=== PATIENT | male | born 1975 | race Caucasian/White ===

== ENCOUNTER → 2020-03-06 | Outpatient (CLI) | payer OTHER ==
[~2020-03-06] MED LIST: ADDE20CA3 PO; AMOXICILLIN; AMOXICILLIN PO; DECADRON PO; LORTAB ELIXIR PO; TYLENOL PO
[2020-03-06 15:39] LABS: HEMATOCRIT 40.6 % (42.0-52.0); HEMOGLOBIN 13.8 g/dl (13.5-17.5); MEAN CORPUSCULAR HEMOGLOBIN 32.5 pg (27.0-33.0); MEAN CORPUSCULAR VOLUME 95.5 fl (80.0-96.0); PLATELET COUNT, AUTOMATED 258 10^3/uL (150-450); RED BLOOD COUNT 4.25 10^6/uL (4.30-6.10); WHITE BLOOD COUNT 5.1 10^3/uL (4.0-10.0)
[2020-03-06 15:56] LABS: ALBUMIN 4.2 GM/DL (3.2-5.2); ALT/SGPT 42 U/L (12-78); BILIRUBIN,TOTAL 0.6 MG/DL (0.2-1.0); BLOOD UREA NITROGEN 18 MG/DL (7-18); CALCIUM LEVEL 9.1 MG/DL (8.5-10.1); CARBON DIOXIDE LEVEL 26 MEQ/L (21-32); CHLORIDE LEVEL 105 MEQ/L (98-107); CHOLESTEROL LEVEL 229 MG/DL (<200); CHOLESTEROL RISK RATIO 6.939 (<5); CREATININE FOR GFR 1.12 MG/DL (0.70-1.30); GLOMERULAR FILTRATION RATE > 60.0 (>60); GLUCOSE, FASTING 90 MG/DL (70-100); HDL CHOLESTEROL 33 MG/DL (>40); NON-HDL-C 196 MG/DL; POTASSIUM SERUM 4.5 MEQ/L (3.5-5.1); SODIUM LEVEL 139 MEQ/L (136-145); TOTAL PROTEIN 7.9 GM/DL (6.4-8.2); TRIGLYCERIDES LEVEL 506 MG/DL (<150)
== END ==
LOC: M WUC 11:43
PROVIDERS: ATTEND Family Medicine
DX: R03.0 Elevated blood-pressure reading, without diagnosis of hypertension (principal)

== ENCOUNTER → 2021-03-08 | Outpatient (CLI) | payer OTHER ==
[2021-03-08 12:37] LABS: HEMATOCRIT 38.7 % (42.0-52.0); HEMOGLOBIN 12.6 g/dl (13.5-17.5); MEAN CORPUSCULAR HEMOGLOBIN 31.4 pg (27.0-33.0); MEAN CORPUSCULAR HGB CONC 32.6 g/dl (32.0-36.5); MEAN CORPUSCULAR VOLUME 96.5 fl (80.0-96.0); PLATELET COUNT, AUTOMATED 240 10^3/uL (150-450); RED BLOOD COUNT 4.01 10^6/uL (4.30-6.10); WHITE BLOOD COUNT 4.6 10^3/uL (4.0-10.0)
[2021-03-08 13:01] LABS: ALBUMIN 4.1 GM/DL (3.2-5.2); ALT/SGPT 33 U/L (12-78); BILIRUBIN,TOTAL 0.6 MG/DL (0.2-1.0); BLOOD UREA NITROGEN 17 MG/DL (7-18); CALCIUM LEVEL 8.8 MG/DL (8.5-10.1); CARBON DIOXIDE LEVEL 28 MEQ/L (21-32); CHLORIDE LEVEL 108 MEQ/L (98-107); CHOLESTEROL LEVEL 176 MG/DL (<200); CHOLESTEROL RISK RATIO 6.285 (<5); CREATININE FOR GFR 1.15 MG/DL (0.70-1.30); GLOMERULAR FILTRATION RATE > 60.0 (>60); GLUCOSE, FASTING 95 MG/DL (70-100); HDL CHOLESTEROL 28 MG/DL (>40); LDL CHOLESTEROL 89 MG/DL (<100); NON-HDL-C 148 MG/DL; POTASSIUM SERUM 4.4 MEQ/L (3.5-5.1); SODIUM LEVEL 139 MEQ/L (136-145); TOTAL PROTEIN 7.3 GM/DL (6.4-8.2); TRIGLYCERIDES LEVEL 293 MG/DL (<150)
== END ==
LOC: M WUC 08:28
PROVIDERS: ATTEND Family Medicine
DX: Z00.00 Encounter for general adult medical examination without abnormal findings (principal)

== ENCOUNTER → 2021-06-18 | Outpatient (CLI) | payer OTHER ==
--- NOTE | 2021-06-18 13:47 | REP ---
INDICATION: UMBILICAL HERNIA W/O OBST OR GANAGRENE. COMPARISON: None. TECHNIQUE: Targeted abdominal wall ultrasound at the umbilicus. With and without Valsalva. FINDINGS: Umbilical sonography confirms the presence of a 1.8 cm defect in the anterior abdominal wall with hypoechoic abdominal contents moving through the defect with Valsalva. Not completely reducible with transducer pressure. A tiny amount of fluid is seen. No peristalsis is noted. IMPRESSION: Umbilical hernia transmitting what is most likely abdominal fat as no peristalsis was seen. 1.8 cm defect. <Electronically signed by George Henry > 06/18/21 [id number]
== END ==
LOC: M RAD 10:43
PROVIDERS: ATTEND Family Medicine
DX: K42.9 Umbilical hernia without obstruction or gangrene (principal)

== ENCOUNTER → 2021-08-17 | Outpatient (CLI) | payer OTHER | LOC: M LABSMTC 10:35 | PROVIDERS: ATTEND Anesthesiology | DX: Z11.52 Encounter for screening for COVID-19 (principal); Z20.828 Contact with and (suspected) exposure to other viral communicable diseases ==

== ENCOUNTER 2021-08-20 10:55 | Day surgery (SDC) | payer OTHER ==
[~2021-08-20] VITALS: Ht 182.9 cm; Wt 115.4 kg
[~2021-08-20 10:55] MED LIST changes: +LIDOCAINE 1% MDV 20ML VIAL SQ PRN; +LIDOCAINE 2% 100MG/5ML SDV (FOR ANES.) As Ordered ONE; +LR 1,000 ML IV ONE; +MIDAZOLAM INJ 2MG/2ML VIAL (J2250 PER 1MG) As Ordered ONE; +ROCURONIUM BROMIDE 50 MG/5 ML VIAL As Ordered ONE; +fentaNYL 250 MCG/5 ML INJECTION (J3010) As Ordered ONE; +propofoL 200 MG/20 ML VIAL As Ordered ONE
--- OUTSIDE RECORDS SUMMARY | 2021-08-20 11:00 | CCD | Continuity of Care Document ---
Author Author Mat ODONNELL M.D. Organization Unknown Address [address] [facility] [address] [facility], [address] [place] [address] Phone [phone] Care Team Providers Care Wood Gluer Name Role Phone Moshe Benrard M.D. AUTM [phone] AUTM Unavailable Problems Active Problems Provider Date Deviated nasal septum Ziggy Lezama MD Onset: 4 Hypertrophy of nasal turbinates Ziggy Lezama MD Onset: 11/29/2013 Chronic tonsillitis Ziggy Lezaam MD Onset: 11/29/2013 Hypertrophy of tonsils Ziggy Lezama MD Onset: 11/30/19 14 Difficulty breathing Ziggy Lezama MD Onset: 11/29/2013 Social History Type Date Description Comments Sex Unknown ETOH Use Occasionally consumes alcohol Tobacco Use Start: Unknown Denies Smoking Recreational Drug Use Denies Drug Use Allergies and adverse reactions Active Allergies Criticality Reaction | Severity Comments Date Sodium Pentathol Unable to assess criticality 11/23/2013 Medications Active Medications SIG Qnty Indications Ordering Provide r Date Fluticasone Propionate 50mcg/Act Suspension 2 sprays to each nostril daily 2units 478.0 Orlando mckee MD 02/14/2014 Claritin-D 24 Hour 1 0-240mg Tablets ER 24HR tab po qd 30tabs 470 Roshan Worthington MD 11/23/2013 Immunizations Description No Information Available Vital Signs Date Vital Result Comment 06/19/2021 10:36am BP Systolic 178 mmHg BP Diastolic 98 mmHg Body Temperature 98.5 F Height 72 inches 6'0" Weight 258.25 lb BMI (Body Mass Index) 35.0 kg/m2 [place] Body Weight 178 lb Weight 117.142 kg BSA (Body Surface Area) 2.38 m2 11/29/2013 10:21am Height 72 inches 6'0" Weight 225.00 lb BMI (Body Mass Index) 30.5 kg/m2 [place] Body Weight 178 lb Weight 102.060 kg BSA (Body Surface Area) 2.24 m2 Results Description No Information Available Procedures Date Code Description Status 06/19/2021 08666 Office/Outpatient New Moderate M DM 45-59 Minutes Completed Medical Devices Description No Information Available Encounters Type Date Location Provider Dx Diagnosis Office Visit 06/19/2021 10:15a [facility] Jose davidson M.D. K42.9 Umbilical hernia without obstruction or gangrene Assessments Date Code Description Provider 06/19/2021 K42.9 Umbilical hernia without obstruc tion or gangrene Jose Odonnell M.D. Plan of Treatment Future Appointment(s):* 09/02/2021 10:30 am - MANISH Bo at [facility] * 08/20/2021 11:45 am - Jose Odonnell M.D. at [facility] 06/19/2021 - Jose Odonnell M.D.* K42.9 Umbilical hernia without obstruction or gangrene* Comments:* Patient was counseled for repair of his hernia. He is having some symptoms with discomfort at times. His hernia likely contains only some fatty tissue but there is always a risk that it will increase in size over time and potentially lead to incarceration or strangulation. I described the repair for him. I advised him that I am now repairing these most often using a robotic assisted laparoscopic repair with placement of mesh. Risks of the procedure were discussed. He had an opportunity to ask questions. He desires to proceed with the surgery and this will be scheduled. Functional Status Description No Information Available Mental Status Description No Information Available Referrals Refer to Reason for Referral Status Appt Date Jose Odonnell M.D. UMBILICAL HERNIA Scheduled 06/19/20 [facility] [address] [place] [address] [phone]
--- OUTSIDE RECORDS SUMMARY | 2021-08-20 11:00 | CCD | Continuity of Care Document ---
Author Author Mat ODONNELL M.D. Organization Unknown Address [address] [facility], [address] [place] [address] Phone [phone] Care Team Providers Care Firmware Engineer Name Role Phone Moshe Bernard M.D. AUTM [phone] AUTM Unavailable Problems Active Problems Provider Date Deviated nasal septum Ziggy Lezama MD Onset: 4 Hypertrophy of nasal turbinates Ziggy Lezama MD Onset: 11/29/2013 Chronic tonsillitis Ziggy Lezama MD Onset: 11/29/2013 Hypertrophy of tonsils Ziggy Lezama MD Onset: 11/30/19 14 Difficulty breathing Ziggy Lezama MD Onset: 11/29/2013 Social History Type Date Description Comments Sex Unknown ETOH Use Occasionally consumes alcohol Tobacco Use Start: Unknown Denies Smoking Recreational Drug Use Denies Drug Use Allergies, Adverse Reactions, Alerts Active Allergies Criticality Reaction | Severity Comments [...] lb BMI (Body Mass Index) 35.0 kg/m2 [place] Body Weight 178 lb Weight 117.142 kg BSA (Body Surface Area) 2.38 m2 11/29/2013 10:21am Height 72 inches 6'0" Weight 225.00 lb BMI (Body Mass Index) 30.5 kg/m2 [place] Body Weight 178 lb Weight 102.060 kg BSA (Body Surface Area) 2.24 m2 Results Description No Information Available Procedures Description No Information Available Medical Devices Description No Information Available Encounters Description No Information Available Assessments Description No Information Available Plan of Treatment 03/23/2014 - Delmar Collazo II, PA-C* 470 Deviated Nasal Septum * 478.0 Hypertrophy Nasal Turbinates* Comments:* Snoring is now minimal. He has had a significant improvement in the ability to move air through his nasal passages. He is not interested in surgical correction of his nasal deviation at this time. He should continue with Flonase as directed. He can follow up with this office if he has an increase in symptoms or concerns. * Follow up:* PRN Functional Status Description No Information Available Mental Status Description No Information Available Referrals Refer to Reason for Referral Status Appt Date Jose Odonnell M.D. UMBILICAL HERNIA Scheduled 06/19/20 21 [facility] [address] [place] [address] [phone]
--- OUTSIDE RECORDS SUMMARY | 2021-08-20 11:00 | CCD ---
Author Author [facility] Organization [facility] Address Unknown Phone Unavailable Care Team Providers Care Sales Operations Coordinator Name Role Phone MAYES, ABRAHAM UMAIR RPA-C Unavailable Unavailable MAYES, ABRAHAM UMAIR RPA-C Unavailable Unavailable MAYES, ABRAHAM UMAIR RPA-C Unavailable Unavailable MAYES, ABRAHAM UMAIR RPA-C Unavailable Unavailable MAYES, ABRAHAM UMAIR RPA-C Unavailable Unavailable MAYES, ABRAHAM UMAIR RPA-C Unavailable Unavailable MAYES, ABRAHAM UMAIR RPA-C Unavailable Unavailable MAYES, ABRAHAM UMAIR RPA-C Unavailable Unavailable MAYES, ABRAHAM UMAIR RPA-C Unavailable Unavailable MAYES, ABRAHAM UMAIR RPA-C Unavailable Unavailable MAYES, ABRAHAM UMAIR RPA-C Unavailable Unavailable MAYES, ABRAHAM UMAIR RPA-C Unavailable Unavailable MAYES, ABRAHAM UMAIR RPA-C Unavailable Unavailable MAYES, ABRAHAM UMAIR RPA-C Unavailable Unavailable MAYES, ABRAHAM UMAIR RPA-C Unavailable Unavailable MAYES, ABRAHAM UMAIR RPA-C Unavailable Unavailable MAYES, ABRAHAM UMAIR RPA-C Unavailable Unavailable MAYES, ABRAHAM UMAIR RPA-C Unavailable Unavailable MAYES, ABRAHAM UMAIR RPA-C Unavailable Unavailable MAYES, ABRAHAM UMAIR RPA-C Unavailable Unavailable MAYES, ABRAHAM UMAIR RPA-C Unavailable Unavailable MAYES, ABRAHAM UMAIR RPA-C Unavailable Unavailable MAYES, ABRAHAM UMAIR RPA-C Unavailable Unavailable MAYES, ABRAHAM UMAIR RPA-C Unavailable Unavailable MAYES, ABRAHAM UMAIR RPA-C Unavailable Unavailable MAYES, ABRAHAM UMAIR RPA-C Unavailable Unavailable MAYES, ABRAHAM UMAIR RPA-C Unavailable Unavailable MAYES, ABRAHAM UMAIR RPA-C Unavailable Unavailable MAYES, ABRAHAM UMAIR RPA-C Unavailable Unavailable MAYES, ABRAHAM UMAIR RPA-C Unavailable Unavailable MAYES, ABRAHAM UMAIR RPA-C Unavailable Unavailable MAYES, ABRAHAM UMAIR RPA-C Unavailable Unavailable MAYES, ABRAHAM UMAIR RPA-C Unavailable Unavailable MAYES, ABRAHAM UMAIR RPA-C Unavailable Unavailable MAYES, ABRAHAM UMAIR RPA-C Unavailable Unavailable MAYES, ABRAHAM UMAIR RPA-C Unavailable Unavailable MAYES, ABRAHAM UMAIR RPA-C Unavailable Unavailable MAYES, ABRAHAM UMAIR RPA-C Unavailable Unavailable MAYES, ABRAHAM UMAIR RPA-C Unavailable Unavailable MAYES, ABRAHAM UMAIR RPA-C Unavailable Unavailable MAYES, ABRAHAM UMAIR RPA-C Unavailable Unavailable MAYES, ABRAHAM UMAIR RPA-C Unavailable Unavailable MAYES, ABRAHAM UMAIR RPA-C Unavailable Unavailable BELLE, O SHINE SHARPE Unavailable Unavailable BELLE, O SHINE MD Unavailable Unavailable BELLE, O SHINE MD Unavailable Unavailable BELLE, O SHINE SHARPE Unavailable Unavailable BELLE, O SHINE MD Unavailable Unavailable BELLE, O SHINE SHARPE Unavailable Unavailable BELLE, O SHINE SHARPE Unavailable Unavailable BELLE, O SHINE SHARPE Unavailable Unavailable BELLE, O SHINE SHARPE Unavailable Unavailable BELLE, O SHINE SHARPE Unavailable Unavailable BELLE, O SHINE SHARPE Unavailable Unavailable BELLE, O SHINE SHARPE Unavailable Unavailable BELLE, O SHINE SHARPE Unavailable Unavailable BELLE, O SHINE SHARPE Unavailable Unavailable BELLE, O SHINE SHARPE Unavailable Unavailable BELLE, O SHINE SHARPE Unavailable Unavailable BELLE, O SHINE SHARPE Unavailable Unavailable BELLE, O SHINE SHARPE Unavailable Unavailable BELLE, O SHINE SHARPE Unavailable Unavailable BELLE, O SHINE SHARPE Unavailable Unavailable BELLE, O SHINE SHARPE Unavailable Unavailable BELLE, O SHINE SHARPE Unavailable Unavailable BELLE, O SHINE SHARPE Unavailable Unavailable BELLE, O SHINE SHARPE Unavailable Unavailable BELLE, O SHINE SHARPE Unavailable Unavailable BELLE, O SHINE MD Unavailable Unavailable BELLE, O SHINE MD Unavailable Unavailable BELLE, O SHINE SHARPE Unavailable Unavailable BELLE, O SHINE SHARPE Unavailable Unavailable BELLE, O SHINE MD Unavailable Unavailable BELLE, O SHINE SHARPE Unavailable Unavailable BELLE, O SIHNE SHARPE Unavailable Unavailable BELLE, O SHINE MD Unavailable Unavailable BELLE, O SHINE MD Unavailable Unavailable BELLE, O SHINE SHARPE Unavailable Unavailable Henrry ODONNELL MD Unavailable Unavailable Henrry ODONNELL MD Unavailable Unavailable Henrry ODONNELL MD Unavailable Unavailable Henrry ODONNELL MD Unavailable Unavailable Henrry ODONNELL MD Unavailable Unavailable Henrry ODONNELL MD Unavailable Unavailable Henrry ODONNELL MD Unavailable Unavailable Henrry ODONNELL MD Unavailable Unavailable Henrry ODONNELL MD Unavailable Unavailable Henrry ODONNELL MD Unavailable Unavailable Morrison, Cece GRAB JACK WORKER Unavailable Unavailable Morrison, Cece GRAB JACK WORKER Unavailable Unavailable Morrison, Cece GRAB JACK WORKER Unavailable Unavailable Morrison, Cece GRAB JACK WORKER Unavailable Unavailable Morrison, Cece GRAB JACK WORKER Unavailable Unavailable Morrison, Cece GRAB JACK WORKER Unavailable Unavailable Morrison, Cece GRAB JACK WORKER Unavailable Unavailable Morrison, Cece GRAB JACK WORKER Unavailable Unavailable Morrison, Cece GRAB JACK WORKER Unavailable Unavailable Morrison, Cece GRAB JACK WORKER Unavailable Unavailable Morrison, Cece GRAB JACK WORKER Unavailable Unavailable Morrison, Cece GRAB JACK WORKER Unavailable Unavailable Morrison, Cece GRAB JACK WORKER Unavailable Unavailable Morrison, Cece GRAB JACK WORKER Unavailable Unavailable Morrison, Cece GRAB JACK WORKER Unavailable Unavailable Morrison, Cece GRAB JACK WORKER Unavailable Unavailable Morrison, Cece GRAB JACK WORKER Unavailable Unavailable Morrison, Cece GRAB JACK WORKER Unavailable Unavailable Morrison, Cece GRAB JACK WORKER Unavailable Unavailable Morrison, Cece GRAB JACK WORKER Unavailable Unavailable Morrison, Cece GRAB JACK WORKER Unavailable Unavailable Morrison, Cece GRAB JACK WORKER Unavailable Unavailable Morrison, Cece GRAB JACK WORKER Unavailable Unavailable Morrison, Cece GRAB JACK WORKER Unavailable Unavailable Morrison, Cece GRAB JACK WORKER Unavailable Unavailable Morrison, Cece GRAB JACK WORKER Unavailable Unavailable Morrison, Cece GRAB JACK WORKER Unavailable Unavailable Morrison, Cece GRAB JACK WORKER Unavailable Unavailable Morrison, Cece GRAB JACK WORKER Unavailable Unavailable Morrison, Cece GRAB JACK WORKER Unavailable Unavailable Morrison, Cece GRAB JACK WORKER Unavailable Unavailable Morrison, Cece GRAB JACK WORKER Unavailable Unavailable Morrison, Elaine Ohara GRAB JACK WORKER Unavailable Unavailable Morrison, Elaine Ohara GRAB JACK WORKER Unavailable Unavailable Morrison, Elaine Ohara GRAB JACK WORKER Unavailable Unavailable Morrison, Elaine Ohara GRAB JACK WORKER Unavailable Unavailable Re-disclosure Warning The records that you are about to access may contain information from federally-assisted alcohol or drug abuse programs. If such information is present, then the following federally mandated warning applies: This information has been disclosed to you from records protected by federal confidentiality rules (42 CFR part 2). The federal rules prohibit you from making any further disclosure of this information unless further disclosure is expressly permitted by the written consent of the person to whom it pertains or as otherwise permitted by 42 CFR part 2. A general authorization for the release of medical or other information is NOT sufficient for this purpose. The Federal rules restrict any use of the information to criminally investigate or prosecute any alcohol or drug abuse patient.The records that you are about to access may contain highly sensitive health information, the redisclosure of which is protected by Article 27-F of the [facility] Public Health law. If you continue you may have access to information: Regarding HIV / AIDS; Provided by facilities licensed or operated by the [facility] Office of Mental Health; or Provided by the [facility] Office for People With Developmental Disabilities. If such information is present, then the following [facility] mandated warning applies: This information has been disclosed to you from confidential records which are protected by state law. State law prohibits you from making any further disclosure of this information without the specific written consent of the person to whom it pertains, or as otherwise permitted by law. Any unauthorized further disclosure in violation of state law may result in a fine or intermediate sentence or both. A general authorization for the release of medical or other information is NOT sufficient authorization for further disc losure. Allergies and Adverse Reactions Type Description Substance Reaction Status Data Source(s ) Allergy to substance Allergy to substance Allergy to substance [facility] ([facility]) Allergy to substance Allergy to substance Allergy to substance [facility] ([facility]) Family History Family Member Name Family Member Gender Family Member Status Date o f Status Description Data Source(s) Unknown Unknown Problem [facility] ([facility]) Encounters Encounter Providers Location Date Indications Data Source(s ) Outpatient Attender: SHINE Miller/Lion/Ander/Re indl 06/19/2021 10:15:00 AM EDT MED[facility] ([facility] Outpatient Attender: Mayda Frye [facility] Main Office 05/02/2021 09:45:00 AM EDT [facility] ([facility] Umair Mayes RPA-C: [address], [place] [address], Ph. Attender: UMAIR MAYES RPA-C [facility] 09/03/2020 12:00:00 AM EST [facility] ([facility]) Umair Mayes RPA-C: [address], [place] [address], Ph. Attender: UMAIR MAYES RPA-C [facility] 07/27/2020 12:00:00 AM EST [facility] ([facility]) Umair Mayes RPA-C: [address], [place] [address], Ph. Attender: UMAIR MAYES RPA-C [facility] 07/27/2020 12:00:00 AM EST [facility] ([facility]) Immunizations Vaccine Date Status Description Data Source(s) COVID-19 VACCINE Pfizer 12/12/2020 12:00:00 AM EDT completed [facility] Vaccine Series Complete: YESThis Data wa s Submitted to [facility]. COVID-19 VACCINE Pfizer 11/21/2020 12:00:00 AM EST completed [facility] Vaccine Series Complete: NOThis Data was Submitted to [facility]. New in 2011. IIV4 07/27/2020 11:30:00 AM EST completed .5 mL [facility] ([facility]) New in 2011. IIV4 07/27/2020 11:30:00 AM EST completed .5 mL [facility] ([facility]) Medications No Information Insurance Providers Payer name Policy type / Coverage type Policy ID Covered green party ID Covered green party's relationship to kimball Policy [place] Plan Information R U [id number] Self [id number] [facility] [id number] SP [id number] [facility] [id number] SP [id number] [facility]/[employer] (HMO) [id number] Self [id number] [employer] [id number] SP [id number] [employer] P[employer] P [id number] S [id number] [facility] [id number] SP [id number] [employer]/P [id number] 18 [id number] Problems, Conditions, and Diagnoses No Information Surgeries/Procedures Procedure Description Date Indications Data Source(s) OFFICE OUTPATIENT NEW 45 MINUTES 06/19/2021 12:00:00 [facility] OFFICE OUTPATIENT VISIT 25 MINUTES 05/02/2021 12:00:00 AM EDT ALL[facility] ([facility]) Results ID Date Data Source [id number] 08/17/2021 11:40:00 AM EST [facility] Name Value Range Interpretation Code Description Data Mary rce(s) Supporting Document(s) SARS-CoV-2 (COVID-19) RNA [Presence] in Respiratory specimen by CLARISSA with probe detection Not Detected [facility] This lab was ordered by [facility] and reported by [employer] Procedure Social History No Information Vital Signs ID Date Data Source UNK Name Value Range Interpretation Code Description Data Source(s) Body temperature 98.5 [degF] 98.5 [degF] [facility] ([facility]) Systolic blood pressure 178 mm[Hg] 178 mm[Hg] Isma CENTENO ([facility]) Body height 72 [in_i] 72 [in_i] [facility] ([facility]) 6'0" Diastolic blood pressure 98 mm[Hg] 98 mm[Hg] [facility] ([facility]) Body weight 258.25 [lb_av] 258.25 [lb_av] [facility] ([facility]) Body mass index (BMI) [Ratio] 35.0 kg/m2 35.0 k g/m2 [facility] ([facility]) Body weight 117.142 kg 117.142 kg [facility] ([facility]) [place] body weight 178 [lb_av] 178 [lb_av] [facility] ([facility]) Body surface area Derived from formula 2.38 m2 2.38 m2 [facility] ([facility]) Systolic blood pressure 128 mm[Hg] 128 mm[Hg] [facility] ([facility]) Diastolic blood pressure 98 mm[Hg] 98 mm[Hg] [facility] ([facility]) Systolic blood pressure 150 mm[Hg] 150 mm[Hg] M [facility] ([facility]) Diastolic blood pressure 85 mm[Hg] 85 mm[Hg] [facility] ([facility]) Body weight 240.00 [lb_av] 240.00 [lb_av] [facility] ([facility]) Body height 72 [in_i] 72 [in_i] [facility] ([facility]) 6'0" Body mass index (BMI) [Ratio] 32.5 kg/m2 32.5 k g/m2 [facility] ([facility])
[2021-08-20] MEDS ORDERED: BUPIVACAINE HCL 0.25% 30ML VIAL As Ordered ONE (13:39)
[2021-08-20] MEDS ORDERED: LACRILUBE (AKWA TEARS) OPHTH OINT 3.5 GM As Ordered ONE (14:04)
[2021-08-20] MEDS ORDERED: ROCURONIUM BROMIDE 50 MG/5 ML VIAL As Ordered ONE (14:31)
[2021-08-20] MEDS ORDERED: ACETAMINOPHEN 1000MG 100ML IV BTL (OFIRMEV) (J0131 PER 10MG) As Ordered ONE (14:34)
[2021-08-20] MEDS ORDERED: ONDANSETRON 4MG/2ML VIAL As Ordered ONE (14:34)
[2021-08-20] MEDS ORDERED: KETOROLAC 60MG 2ML VIAL As Ordered ONE (14:34)
[2021-08-20] MEDS ORDERED: dexameTHASONE 4 MG/ML 1ML VIAL (J1100 PER 1MG) As Ordered ONE (14:34)
[2021-08-20] MEDS ORDERED: SUGAMMADEX SODIUM 500 MG/5 ML VIAL (BRIDION) As Ordered ONE (14:34)
[2021-08-20] MEDS ORDERED: PERCOCET 5MG/325MG TAB PO PRN (15:55)
[2021-08-20] MEDS ORDERED: ONDANSETRON 4MG/2ML VIAL IV PRN (15:55)
[2021-08-20] MEDS ORDERED: IBUPROFEN 600MG TAB PO PRN (15:55)
[2021-08-20] MEDS ORDERED: HumaLOG INSULIN (NovoLOG) PER UNIT SC ONE (15:55)
[2021-08-20] MEDS ORDERED: fentaNYL 100 MCG/2 ML INJECTION (J3010) IV PRN (15:55)
[2021-08-20] MEDS ORDERED: ACETAMINOPHEN TAB 650MG DOSE (2X325MG) PO PRN (15:55)
[2021-08-20] MEDS ORDERED: oxyCODONE 5MG TAB PO PRN (15:55)
[2021-08-20] MEDS ORDERED: HYDR-4571 PO (15:55)
[2021-08-20] MEDS ORDERED: METOCLOPRAMIDE INJ 10MG/2ML VIAL (J2765 PER 1) IV PRN (15:55)
[2021-08-20] MEDS ORDERED: LR 1,000 ML IV SCH (15:55)
[2021-08-20 17:45] VITALS: BP 155/91
--- NOTE | 2021-08-22 10:47 | RO ---
OPERATIVE NOTE DATE OF OPERATION: 08/20/2021 PREOPERATIVE DIAGNOSIS: Umbilical hernia. POSTOPERATIVE DIAGNOSIS: Umbilical hernia. PROCEDURE: Robotic-assisted laparoscopic repair of umbilical hernia with mesh. The mesh utilized was Parietex from [employer] with reference code [id number] and lot number [id number]. SURGEON: Jose Nam MD TIME STUDY CLERK: VICTOR M Calvillo. Marylou's assistance was essential for placement of the trocars, management of the robotic instruments with exchange of instruments and passage of mesh and sutures and Marylou closed the incisions as well at the conclusion of the procedure. ANESTHESIA: General. INDICATIONS FOR THE PROCEDURE: The patient is a 46-year-old man who has noticed a bulge just above the umbilicus developing over the last year or two. This has become somewhat uncomfortable with more strenuous activity and he is now for repair. DESCRIPTION OF OPERATIVE PROCEDURE: The patient was brought to the operating room and placed on the table in a supine position. He was placed under general endotracheal anesthesia. The patient's abdomen was prepped and draped in a sterile fashion. 1/4% Marcaine was infiltrated at the trocar sites as needed. A short transverse right upper quadrant incision was made. A Veress needle was inserted and after a positive hanging drop test, the abdomen was inflated with carbon dioxide gas. Once the abdomen was inflated, an 8 mm robotic port was placed over the scope and advanced through the abdominal wall without difficulty. Initial examination showed no evidence of Veress needle or trocar injury. The umbilical hernia was clearly identified. There were no entrapped contents. A second port was placed at about the level of the umbilicus in the lateral aspect of the abdomen on the right and a third port was placed in the right lower quadrant. The patient was placed in a slight Trendelenburg position to level the abdomen and rolled slightly to the left. The patient cart with a Da Katarina Xi robot was brought into position and the middle port was then docked to the endoscope arm. Targeting took place on the anterior abdominal wall hernia. The additional robotic arms were then docked and a fenestrated bipolar and cauterizing scissors were then inserted into the abdomen through the remaining arms. I then moved to the control console to proceed with the operation. Inspection showed a fascial defect estimated at about 2.5 cm. A peritoneal flap was developed beginning at the right edge of the preperitoneal fat. This was extended over a length of perhaps 10-12 cm. The flap was developed working from right to left across the midline. The hernia sac was inverted intact and dissection was carried another 5 cm or so the left of the midline. Inspection confirmed the fascial defect approximately 2.5 cm in diameter. There was a second very small defect just at the top edge of this. The fascial defect was closed with a transverse running suture of 1-0 Stratafix. A 9 cm round Parietex patch as described earlier was selected. This was inserted into the abdomen and placed into the preperitoneal space with the adherent side facing the abdominal wall. The patch was then sutured securely to the anterior abdominal wall using sutures of 2-0 V-Loc. Sutures were placed across the transverse midline and longitudinal midline of the patch and then the entire periphery was tacked in place as well. The peritoneal flap was then closed also with a running suture of 2-0 V-Loc. The repair was performed with the abdominal pressure set at 10 mmHg. The final inspection showed no evidence of bleeding. The robotic instruments were removed and the robot was undocked and withdrawn. The abdomen was deflated and the trocars were removed and the incisions were closed with buried sutures of 4-0 Vicryl. The patient tolerated the procedure well without apparent complication. Steristrips and light dressings were applied. He was awakened in the operating room, extubated and moved to the recovery room in stable condition. YOLANDA
== END 2021-08-20 14:38 | disposition home or self-care (01) ==
LOC: M SDC 10:55
PROVIDERS: ATTEND Surgery
DX: K42.9 Umbilical hernia without obstruction or gangrene (principal)
CPT/HCPCS: 49652; C1781; J0131; J1100; J1885; J2250; J2405; J3010; S2900

== ENCOUNTER → 2022-06-30 | Outpatient (CLI) | payer OTHER ==
[~2022-06-30] MED LIST changes: +HYDR-4571 PO; -LIDOCAINE 1% MDV 20ML VIAL SQ PRN; -LIDOCAINE 2% 100MG/5ML SDV (FOR ANES.) As Ordered ONE; -LR 1,000 ML IV ONE; -MIDAZOLAM INJ 2MG/2ML VIAL (J2250 PER 1MG) As Ordered ONE; -ROCURONIUM BROMIDE 50 MG/5 ML VIAL As Ordered ONE; -fentaNYL 250 MCG/5 ML INJECTION (J3010) As Ordered ONE; -propofoL 200 MG/20 ML VIAL As Ordered ONE
[2022-06-30 13:33] LABS: BASO # 0.1 10^3/uL (0.0-0.2); BASO % 1.4 % (0.0-1.0); EOS # 0.1 10^3/uL (0.0-0.5); EOS % 2.7 % (0.0-3.0); HEMATOCRIT 37.9 % (42.0-52.0); HEMOGLOBIN 12.8 g/dl (13.5-17.5); LYMPH # 1.5 10^3/uL (1.5-5.0); LYMPH % 34.1 % (24.0-44.0); MEAN CORPUSCULAR HEMOGLOBIN 31.6 pg (27.0-33.0); MEAN CORPUSCULAR HGB CONC 33.8 g/dl (32.0-36.5); MEAN CORPUSCULAR VOLUME 93.6 fl (80.0-96.0); MONO # 0.5 10^3/uL (0.0-0.8); NEUTROPHILS # 2.2 10^3/uL (1.5-8.5); NEUTROPHILS % 50.6 % (36.0-66.0); PLATELET COUNT, AUTOMATED 233 10^3/uL (150-450); RED BLOOD COUNT 4.05 10^6/uL (4.30-6.10); WHITE BLOOD COUNT 4.4 10^3/uL (4.0-10.0)
[2022-06-30 14:21] LABS: ALBUMIN 4.3 GM/DL (3.2-5.2); ALT/SGPT 29 U/L (12-78); BILIRUBIN,TOTAL 0.7 MG/DL (0.2-1.0); BLOOD UREA NITROGEN 14 MG/DL (7-18); CALCIUM LEVEL 9.3 MG/DL (8.5-10.1); CARBON DIOXIDE LEVEL 30 MEQ/L (21-32); CHLORIDE LEVEL 102 MEQ/L (98-107); CHOLESTEROL LEVEL 205 MG/DL (<200); CHOLESTEROL RISK RATIO 5.394 (<5); GLOMERULAR FILTRATION RATE > 60.0 (>60); GLUCOSE, FASTING 100 MG/DL (70-100); HDL CHOLESTEROL 38 MG/DL (>40); LDL CHOLESTEROL 114 MG/DL (<100); NON-HDL-C 167 MG/DL; POTASSIUM SERUM 4.3 MEQ/L (3.5-5.1); SODIUM LEVEL 135 MEQ/L (136-145); TOTAL PROTEIN 7.7 GM/DL (6.4-8.2); TRIGLYCERIDES LEVEL 264 MG/DL (<150)
== END ==
LOC: M WUC 11:02
PROVIDERS: ATTEND Family Medicine
DX: Z00.00 Encounter for general adult medical examination without abnormal findings (principal)

== ENCOUNTER 2023-04-08 09:45 | Day surgery (SDC) | payer OTHER ==
[~2023-04-08] VITALS: Ht 182.9 cm; Wt 111.8 kg
[~2023-04-08 09:45] MED LIST changes: +NS 1,000 ML IV ONE
[2023-04-08] MEDS ORDERED: propofoL 500 MG/50 ML VIAL As Ordered ONE (10:56)
[2023-04-08] MEDS ORDERED: LIDOCAINE 2% 100MG/5ML SDV (FOR ANES.) As Ordered ONE (10:56)
[2023-04-08 11:11] VITALS: TEMP 96.5
[2023-04-08 11:24] VITALS: BP 136/79; O2SAT 97
== END 2023-04-08 11:29 | disposition home or self-care (01) ==
LOC: M OPP 09:45
PROVIDERS: ATTEND Internal Medicine Gastroenterology
DX: Z12.11 Encounter for screening for malignant neoplasm of colon (principal); Z88.4 Allergy status to anesthetic agent

== ENCOUNTER → 2023-09-02 | Outpatient (REF) | payer OTHER ==
[~2023-09-02] MED LIST changes: -NS 1,000 ML IV ONE
[2023-09-02 11:54] LABS: BASO # 0.1 10^3/uL (0.0-0.2); EOS # 0.2 10^3/uL (0.0-0.5); EOS % 2.8 % (0.0-3.0); HEMATOCRIT 40.9 % (42.0-52.0); HEMOGLOBIN 13.7 g/dl (13.5-17.5); LYMPH # 1.6 10^3/uL (1.5-5.0); LYMPH % 27.3 % (24.0-44.0); MEAN CORPUSCULAR HEMOGLOBIN 31.5 pg (27.0-33.0); MEAN CORPUSCULAR HGB CONC 33.5 g/dl (32.0-36.5); MONO # 0.6 10^3/uL (0.0-0.8); MONO % 10.6 % (2.0-8.0); NEUTROPHILS # 3.5 10^3/uL (1.5-8.5); PLATELET COUNT, AUTOMATED 241 10^3/uL (150-450); RED BLOOD COUNT 4.35 10^6/uL (4.30-6.10)
[2023-09-02 12:08] LABS: ERYTHROCYTE SEDIMENTATION RATE 17 mm/hr (0-15)
[2023-09-02 12:17] LABS: ALBUMIN 4.1 G/DL (3.2-5.2); ALKALINE PHOSPHATASE 57 U/L (46-116); ALT/SGPT 50 U/L (7.0-40); AST/SGOT 27 U/L (<34); BILIRUBIN,TOTAL 0.6 MG/DL (0.3-1.2); BLOOD UREA NITROGEN 18 MG/DL (9-23); CARBON DIOXIDE LEVEL 28 MMOL/L (20-31); CHLORIDE LEVEL 105 MMOL/L (98-107); CHOLESTEROL LEVEL 205 MG/DL (<200); CHOLESTEROL RISK RATIO 6.21 (<5); CREATININE FOR GFR 0.97 MG/DL (0.70-1.30); GLOMERULAR FILTRATION RATE > 60.0 (>60); GLUCOSE, FASTING 88 MG/DL (60-100); LDL CHOLESTEROL 95.2 MG/DL (<100); POTASSIUM SERUM 4.3 MMOL/L (3.5-5.1); SODIUM LEVEL 141 MMOL/L (136-145); TOTAL PROTEIN 7.3 G/DL (5.7-8.2); TRIGLYCERIDES LEVEL 384 MG/DL (<150)
== END ==
LOC: M LABWUC 09:30
PROVIDERS: ATTEND Family Medicine
DX: Z00.00 Encounter for general adult medical examination without abnormal findings (principal); M25.50 Pain in unspecified joint

== ENCOUNTER → 2023-09-25 | Outpatient (REF) | payer OTHER | LOC: M LABWUC 09:54 | PROVIDERS: ATTEND Family Medicine | DX: R53.83 Other fatigue (principal) ==

== ENCOUNTER → 2023-10-02 | Outpatient (CLI) | payer OTHER ==
[2023-10-02 10:46] LABS: FOLLICLE STIMULATING HORMONE 4.7 mIU/ML (1.4-18.1); LUTEINIZING HORMONE 2.8 mIU/ML (1.5-9.3)
== END ==
LOC: M WUC 08:08
PROVIDERS: ATTEND Family Medicine
DX: E29.1 Testicular hypofunction (principal)

== ENCOUNTER → 2023-11-05 | Outpatient (CLI) | payer OTHER ==
[2023-11-05 11:48] LABS: PSA SCREENING 0.68 NG/ML (< 4.00)
[2023-11-05 11:52] LABS: THYROID STIMULATING HORMONE 1.804 uIU/ML (0.55-4.78)
[2023-11-05 11:53] LABS: FREE T4 1.05 NG/DL (0.89-1.76)
[2023-11-05 11:54] LABS: FOLLICLE STIMULATING HORMONE 3.9 mIU/ML (1.4-18.1); PROLACTIN 6.13 NG/ML (2.1-17.7)
== END ==
LOC: M WUC 08:10
PROVIDERS: ATTEND Nurse Practitioner Family
DX: E29.1 Testicular hypofunction (principal)

== ENCOUNTER → 2023-11-19 | Outpatient (CLI) | payer OTHER | LOC: M WUC 08:04 | PROVIDERS: ATTEND Nurse Practitioner Family | DX: E29.1 Testicular hypofunction (principal) ==

== ENCOUNTER → 2024-08-09 | Outpatient (CLI) | payer OTHER ==
[2024-08-09 10:34] LABS: BASO # 0.1 10^3/uL (0.0-0.2); BASO % 0.9 % (0.0-1.0); EOS # 0.2 10^3/uL (0.0-0.5); EOS % 2.8 % (0.0-3.0); HEMOGLOBIN 13.6 g/dl (13.5-17.5); LYMPH # 1.7 10^3/uL (1.5-5.0); LYMPH % 32.1 % (24.0-44.0); MEAN CORPUSCULAR HEMOGLOBIN 30.9 pg (27.0-33.0); MEAN CORPUSCULAR HGB CONC 33.2 g/dl (32.0-36.5); MEAN CORPUSCULAR VOLUME 93.2 fl (80.0-96.0); MONO # 0.6 10^3/uL (0.0-0.8); MONO % 11.3 % (2.0-8.0); NEUTROPHILS # 2.8 10^3/uL (1.5-8.5); NEUTROPHILS % 52.5 % (36.0-66.0); PLATELET COUNT, AUTOMATED 224 10^3/uL (150-450); WHITE BLOOD COUNT 5.4 10^3/uL (4.0-10.0)
[2024-08-09 11:04] LABS: BLOOD UREA NITROGEN 18 MG/DL (9-23); CALCIUM LEVEL 9.3 MG/DL (8.5-10.1); CARBON DIOXIDE LEVEL 30 MMOL/L (20-31); CHLORIDE LEVEL 105 MMOL/L (98-107); CREATININE FOR GFR 1.15 MG/DL (0.70-1.30); GLOMERULAR FILTRATION RATE > 60.0 (>60); GLUCOSE, FASTING 108 MG/DL (60-100); POTASSIUM SERUM 4.6 MMOL/L (3.5-5.1); SODIUM LEVEL 141 MMOL/L (136-145)
== END ==
LOC: M WUC 08:07
PROVIDERS: ATTEND Family Medicine
DX: Z01.818 Encounter for other preprocedural examination (principal)

== ENCOUNTER → 2024-09-19 | Outpatient (CLI) | payer OTHER ==
[2024-09-19 11:24] LABS: APPEARANCE, URINE CLEAR (CLEAR); BACTERIA, URINE AUTO NEGATIVE (NEGATIVE); BILIRUBIN, URINE AUTO NEGATIVE (NEGATIVE); BLOOD, URINE BLOOD NEGATIVE (NEGATIVE); COLOR, URINE YELLOW (YELLOW); GLUCOSE, URINE (UA) AUTO NEGATIVE (NEGATIVE); KETONE, URINE AUTO NEGATIVE (NEGATIVE); LEUKOCYTE ESTERASE, URINE AUTO NEGATIVE (NEGATIVE); NITRITE, URINE AUTO NEGATIVE (NEGATIVE); PROTEIN, URINE AUTO NEGATIVE (NEGATIVE); RBC, URINE AUTO 1 /HPF (0-3); SPECIFIC GRAVITY URINE AUTO 1.013 (1.002-1.035); SQUAMOUS EPITHELIAL CELL UR AU 0 /HPF (0-6); UROBILINOGEN, URINE AUTO 0.2 mg/dL (0.0-2.0); WBC, URINE AUTO 0 /HPF (0-3)
== END ==
LOC: M LAB 10:53
PROVIDERS: ATTEND Orthopaedic Surgery
DX: M75.101 Unspecified rotator cuff tear or rupture of right shoulder, not specified as traumatic (principal)

== ENCOUNTER → 2025-04-14 | Outpatient (REF) | payer OTHER | LOC: M LAB REF 13:11 | PROVIDERS: ATTEND Nurse Practitioner Adult Health | DX: N52.9 Male erectile dysfunction, unspecified (principal); N40.1 Benign prostatic hyperplasia with lower urinary tract symptoms ==

== ENCOUNTER → 2025-06-06 | Outpatient (CLI) | payer OTHER ==
[~2025-06-06] MED LIST changes: +PROHANCE 279.3MG/ML 15ML VIAL As Ordered ONE; +PROHANCE 279.3MG/ML 5ML VIAL As Ordered ONE
== END ==
LOC: M RAD 14:30
PROVIDERS: ATTEND Nurse Practitioner Adult Health
DX: R16.0 Hepatomegaly, not elsewhere classified (principal); Z83.49 Family history of other endocrine, nutritional and metabolic diseases; R93.89 Abnormal findings on diagnostic imaging of other specified body structures
CPT/HCPCS: 72197; 74183; A9576

== ENCOUNTER → 2025-06-20 | Outpatient (CLI) | payer OTHER | LOC: M RAD 11:33 | PROVIDERS: ATTEND Nurse Practitioner Adult Health | DX: Z83.49 Family history of other endocrine, nutritional and metabolic diseases (principal) ==

== ENCOUNTER → 2025-07-17 | Outpatient (REF) | payer OTHER ==
[~2025-07-17] MED LIST changes: -PROHANCE 279.3MG/ML 15ML VIAL As Ordered ONE; -PROHANCE 279.3MG/ML 5ML VIAL As Ordered ONE
[2025-07-17 13:18] LABS: ESTRADIOL 32.6 PG/ML (<39.8); LUTEINIZING HORMONE 4.1 mIU/ML (1.5-9.3)
[2025-07-19 22:02] LABS: LDL DIRECT 102 mg/dL (<100)
== END ==
LOC: M LAB REF 12:09
PROVIDERS: ATTEND Nurse Practitioner Adult Health
DX: R79.89 Other specified abnormal findings of blood chemistry (principal); N52.9 Male erectile dysfunction, unspecified; I10 Essential (primary) hypertension; E78.5 Hyperlipidemia, unspecified